=== PATIENT | female | born 1985 | race Caucasian/White ===

== ENCOUNTER → 2016-08-30 | Outpatient (CLI) | payer MEDICAID, OTHER ==
--- NOTE | 2016-08-30 15:04 | REP ---
Clinical: Pelvic pain . Technique: Transabdominal pelvic ultrasound followed by transvaginal examination for better evaluation of the endometrium and adnexa with color Doppler evaluation of the ovaries. Findings: Bladder is unremarkable and measures 9.5 x 9.4 x 5.5 cm . Normal anteverted uterus measures a 0.8 x 4.5 x 7.1 cm . The endometrial complex measures 13.8 mm thickness. No discrete uterine or endometrial abnormalities are appreciated. Portion of Essure device identified at the cornual junction. Bilateral ovaries are normal in appearance and vascularity without evidence for torsion. Right ovary measures 3.7 x 3.0 x 2.5 cm ; R I = 0.80 . Left ovary measures 3.7 x 2.7 x 3.2 cm ; R I = 0.55. No pelvic fluid or adnexal mass lesion. Impression: 1. Essentially normal pelvic ultrasound. Normal ovaries without torsion. Signed by Dionisio Huang MD 08/30/2016 02:56 P
== END ==
LOC: M RAD 12:44
PROVIDERS: ATTEND Obstetrics & Gynecology
DX: R10.2 Pelvic and perineal pain (principal)